=== PATIENT | male | born 1960 | race Caucasian/White ===

== ENCOUNTER 2018-10-10 13:59 | Emergency (ER) | payer OTHER ==
[2018-10-10] MEDS ORDERED: Aspirin Chewable 81 MG TAB ONE (14:20)
[2018-10-10] MEDS ORDERED: Nitroglycerin 2% Ointment 1 INCH/1 GM Packet ONE (14:20)
[2018-10-10 14:24] LABS: #Lymphocytes 1.4 thou/uL (1.20-3.40); #Monocytes 0.4 thou/uL (0.11-0.59); #Neutrophils 3.9 thou/uL (1.40-6.50); %Basophils 0.8 % (0.0-1.0); %Eosinophils 0.5 % (0.0-10.0); %Lymphocytes 24.1 % (21.0-51.0); %Monocytes 7.1 % (0.0-10.0); %Neutrophils 67.6 % (42.0-75.0); Mean Corpuscular HGB CONC 31.7 g/dL (32.0-36.0); Mean Corpuscular Volume 85.4 fL (78.0-98.0); Mean Platelet Volume 8.9 fL (7.4-10.4); Platelet Count 196 thou/uL (130-400); RBC Distribution Width 12.6 % (11.5-14.5); Red Blood Cell (RBC) Count 5.54 mill/uL (4.70-6.10); White Blood Cell (WBC) Count 5.8 thou/uL (4.8-10.8)
--- NOTE | 2018-10-10 14:30 | RAD ---
FXR Chest 1 View Portable History: [Chest pain] Comparison: Radiograph 2015 Findings: The lungs are clear. No pneumothorax or effusion. Cardiac silhouette and mediastinal contou rs are within normal limits. Impression: No acute intrathoracic abnormality.
[2018-10-10 14:42] LABS: ALT (SGPT) 33 U/L (8-55); AST (SGOT) 20 U/L (5-34); Alkaline Phosphatase 106 U/L (40-150); Anion Gap 13 mmol/L (10-20); BUN (Urea Nitrogen) 13 mg/dL (8.4-25.7); Bilirubin, Total 0.4 mg/dL (0.2-1.2); CK (CPK) 134 U/L (30-200); Calc. Creatinine Clearance 0 mL/min (70-130); Calcium 9.3 mg/dL (7.8-10.44); Carbon Dioxide 23 mmol/L (22-29); Chloride 104 mmol/L (98-107); Estimated GFR-MDRD 67; Globulin 3.2 g/dL (2.4-3.5); Glucose 339 mg/dL (70-105); Lipase 34 U/L (8-78); Potassium 3.9 mmol/L (3.5-5.1); Protein, Total 7.2 g/dL (6.0-8.3); Sodium 136 mmol/L (136-145)
== END 2018-10-10 15:23 | disposition home or self-care (01) ==
LOC: SCSER 13:59
DX: R07.9 Chest pain, unspecified (principal); E11.9 Type 2 diabetes mellitus without complications; I10 Essential (primary) hypertension; G47.33 Obstructive sleep apnea (adult) (pediatric); Z79.899 Other long term (current) drug therapy; Z79.84 Long term (current) use of oral hypoglycemic drugs
CPT/HCPCS: 71045; 80053; 82550; 83690; 84484; 85025; 93005; 94760

== ENCOUNTER 2019-07-16 15:40 | Outpatient (CLI) | payer OTHER ==
--- NOTE | 2019-07-16 16:42 | MRI ---
EXAM: MRI right knee PROVIDED CLINICAL HISTORY: Pain COMPARISON: None FINDINGS: The anterior cruciate ligament, posterior cruciate ligament, medial collateral ligament and lateral c ollateral ligamentous complex demonstrate an intact MR appearance, as does the extensor mechanism. There is a complex nondisplaced tear involving the posterior horn of the medial meniscus. The lateral meniscus demonstrates no evidence for tear. No focal articular cartilage defect is apparent. There is signal inhomogeneity involving the patellar articular cartilage involving the median ridge and medial facet with probable full-thickness reticular cartilage fissuring involving the medial facet associated with subcortical signal alteratio n. Articular cartilage irregularity is seen involving the posterior aspects of the lateral femoral condyle with subjacent subcortical signal alteration. There is a moderate knee joint effusion. Intra-articular bodies are seen within the popliteal hiatus. Largest of these measures about 8 mm. No focal concerning regional marrow or muscular signal abnormality apparent. IMPRESSION: 1. Complex nondisplaced posterior horn medial meniscal tear. 2. 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 3. Moderate knee joint effusion.
== END 2019-07-16 15:41 | disposition home or self-care (01) ==
LOC: TBSIIMAG 15:40
PROVIDERS: ATTEND Orthopaedic Surgery
DX: M25.561 Pain in right knee (principal); S83.231A Complex tear of medial meniscus, current injury, right knee, initial encounter; M25.461 Effusion, right knee

== ENCOUNTER 2019-09-24 13:54 | Outpatient (CLI) | payer OTHER ==
--- NOTE | 2019-09-24 14:17 | RAD ---
Right Little finger 3 views HISTORY: Injury. FINDINGS: Mild joint space narrowing and osteophytosis at the distal interphalangeal joint. Fifth met acarpal has a normal appearance. No acute fracture, dislocation, or aggressive osseous erosions. IMPRESSION : Mild osteoarthritic changes distal phalanx. No acute osseous abnormalities are demonstrated.
== END 2019-09-24 13:55 | disposition home or self-care (01) ==
LOC: BICRAD 13:54
PROVIDERS: ATTEND Nurse Practitioner
DX: S69.91XA Unspecified injury of right wrist, hand and finger(s), initial encounter (principal); M19.041 Primary osteoarthritis, right hand

== ENCOUNTER 2020-06-28 21:10 | Observation (INO) | payer OTHER ==
[2020-06-29 00:24] VITALS: BMI 43.3
[2020-06-29 01:02] LABS: Troponin I Less than 0.010 ng/mL (< 0.028)
[2020-06-29] MEDS ORDERED: Dextrose 50% Abboject 50 ML SYRINGE SLOW IVP PRN (01:38)
[2020-06-29] MEDS ORDERED: HumaLOG 300 UNITS/3 ML VIAL SC PRN (01:38)
[2020-06-29] MEDS ORDERED: Dextrose 5% in Water 1,000 ML IV PRN (01:38)
--- NOTE | 2020-06-29 01:50 | PDOC.HHP ---
Hospitalist HPI - History of Present Illness History of Present Illness: ADMISSION DATE: 06/09/2020 TIME OF ASSESSMENT: 00 45 PRIMARY CARE PHYSICIAN: ANNA Olguin CHIEF COMPLAINT: Chest pain and palpitations HPI: Patient is a 60-year-old male with past medical history significant for hypertension and diabetes mellitus type 2. Patient states that today he was at home and felt palpitations and a pressure in his chest. His watch was able to take an EKG and showed A. fib with RVR up to the 190s. Patient presented to the ER but by that time the palpitations had ended and he is back in sinus rhythm. Chest pain also resolved at that time. Denies diaphoresis, shortness of breath, fever, contact with sick persons, GI symptoms. Patient does endorse recent cough, nonproductive taking NyQuil for yesterday. ED COURSE: Patient was initially seen in the [place] ER and then transferred as a direct admission to telemetry. Vital Signs: Blood pressure 151/79, pulse 89, respiratory 16, temp 99.1 oral, 95% on room air In the [place] ER he had an EKG, chest x-ray, and lab work completed. He was administered nitro 1 inch topical and aspirin 324 mg p.o. PAST MEDICAL HISTORY: Diabetes mellitus type 2, hypertension, obstructive sleep apnea PAST SURGICAL HISTORY: Neck surgery, nasal surgery, cholecystectomy, hernia repair, right and left ankle surgery, cardiac [place] [address] Benavides interventions necessary SOCIAL HISTORY: Patient lives at home with his . They are both retired. He denies any alcohol, drugs, tobacco use. FAMILY HISTORY: CAD, hypertension ALLERGIES: Codeine CURRENT MEDICATIONS: Lisinopril 5 mg once a day Metformin 500 mg 2 times a day Glipizide 2.5 mg once a day Vitamin D3 2000 units once a day Hospitalist ROS - Review of Systems Respiratory: reports: cough Cardiovascular: reports: chest pain, palpitations All other systems reviewed; all pertinent +/- noted in HPI/Subj - Exam General Appearance: NAD, awake alert Eye: PERRL ENT: normocephalic atraumatic Neck: supple Heart: RRR, no murmur, no gallops, no rubs, normal peripheral pulses Respiratory: CTAB, no wheezes, no rales, no ronchi, normal chest expansion Gastrointestinal: soft, non-tender, non-distended, normal bowel sounds Extremities: no cyanosis, no edema Neurological: no focal deficits Musculoskeletal: no muscle wasting Psychiatric: normal affect, normal behavior, A&O x 3 Hospitalist Results - Labs Lab results: Laboratory Tests 06/28/20 06/28/20 06/28/20 00:15 19:10 19:10 WBC Hgb Hct Sodium 140 Potassium 3.8 BUN 15 Creatinine 0.97 Estimated GFR (MDRD) 79 Glucose 229 H Troponin I Less than 0.010 B-Natriuretic Peptide 12.6 06/28/20 06/28/20 19:10 19:10 WBC 3.7 L Hgb 15.3 Hct 47.5 Sodium Potassium BUN Creatinine Estimated GFR (MDRD) Glucose Troponin I 0.011 B-Natriuretic Peptide - EKG Interpretation EKG: Sinus rhythm 94 bpm - Radiology Interpretation Chest x-ray Status: image reviewed by me, report reviewed by me Additional Comment: No acute thoracic findings. Hospitalist H&P A/P - Plan Plan: Chest pain Continue to monitor patient on telemetry Continue to trend troponins, first 2 were negative Cardiology consultation in a.m. Palpitations Resolved at this time and currently in sinus rhythm Monitor on telemetry for any arrhythmias Repeat BMP in a.m. Echo in a.m. Hypertension Monitor vital signs every 4 hours Restart home medications once reconciled As needed antihypertensives to be made available Diabetes mellitus type 2 Monitor Accu-Cheks AC at bedtime Mild sliding scale insulin restart home medications once reconciled VTE prophylaxis in place with SCDs CODE STATUS: Full Surrogate decision-maker is his , Olivia
[2020-06-29 03:38] LABS: Anion Gap 15 mmol/L (10-20); BUN (Urea Nitrogen) 15 mg/dL (8.4-25.7); Calc. Creatinine Clearance 180 mL/min (70-130); Calcium 8.2 mg/dL (7.8-10.44); Carbon Dioxide 21 mmol/L (22-29); Chloride 106 mmol/L (98-107); Glucose 166 mg/dL (70-105); Potassium 4.1 mmol/L (3.5-5.1); Sodium 138 mmol/L (136-145)
[2020-06-29 03:45] LABS: Troponin I 0.014 ng/mL (< 0.028)
[2020-06-29 04:18] LABS: Hemoglobin 14.2 g/dL (14.0-18.0); Mean Corpuscular HGB CONC 33.1 g/dL (32.0-36.0); Mean Corpuscular Hemoglobin 28.5 pg (27.0-31.0); Mean Corpuscular Volume 86.1 fL (78.0-98.0); Platelet Count 170 thou/uL (130-400); RBC Distribution Width 12.3 % (11.5-14.5); Red Blood Cell (RBC) Count 4.97 mill/uL (4.70-6.10); White Blood Cell (WBC) Count 3.8 thou/uL (4.8-10.8)
[2020-06-29 04:19] LABS: Band 4 % (5-11); Eosinophils 1 % (0-10); Lymphocytes 28 % (21-51); MDiff Complete? YES; Monocytes 20 % (0-10); Neutrophil 47 % (42-75)
[2020-06-29 05:21] LABS: SARS-CoV-2 MS2 Positive; SARS-CoV-2 N Gene Positive; SARS-CoV-2 S Gene Positive; SARS-CoV-2 by NAA DETECTED (NotDetected); SARS-CoV-2 orf1ab Positive
[2020-06-29] MEDS: HumaLOG 300 UNITS/3 ML VIAL SC PRN ×3 (06:21→13:34)
[2020-06-29] MEDS ORDERED: metFORMIN 500 MG TAB PO SCH ×2 (08:00→17:00)
[2020-06-29] MEDS ORDERED: Benzonatate 100 MG CAP PO PRN (08:55)
[2020-06-29] MEDS ORDERED: Ondansetron ODT 4 MG TAB PO PRN (08:55)
[2020-06-29] MEDS ORDERED: Sodium Chloride 0.65% Nasal 44 ML BOT EA NARE PRN (08:55)
[2020-06-29] MEDS ORDERED: Diabetic Tussin 200 MG/10 ML UDCUP PO PRN (08:55)
[2020-06-29] MEDS ORDERED: hydrALAZINE 20 MG/ML VIAL SLOW IVP PRN (08:55)
[2020-06-29] MEDS ORDERED: Loperamide HCl 2 MG CAP PO PRN (08:55)
[2020-06-29] MEDS ORDERED: Senokot S 8.6-50 MG TAB PO PRN (08:55)
[2020-06-29] MEDS ORDERED: Cepastat Lozenges 1 LOZ PO PRN (08:55)
[2020-06-29] MEDS ORDERED: Calcium Carbonate 500 MG ChewTAB PO PRN (08:55)
[2020-06-29] MEDS ORDERED: Ondansetron PF 4 MG/2 ML Vial IVP PRN (08:55)
[2020-06-29] MEDS ORDERED: Loratadine 10 MG TAB PO PRN (08:55)
[2020-06-29] MEDS ORDERED: Bisacodyl 10 MG SUPP PR PRN (08:55)
[2020-06-29] MEDS ORDERED: Zolpidem Tartrate 5 MG TAB PO PRN (08:55)
--- NOTE | 2020-06-29 09:06 | CON ---
DATE OF CONSULTATION: HISTORY OF PRESENT ILLNESS: The patient is a 60-year-old gentleman who presents for evaluation of palpitations and chest discomfort. The patient was seen approximately 5 years ago with chest discomfort. He underwent a cardiac catheterization. The patient was found to have normal left ventricular systolic function with normal coronary arteries. The patient was in his usual state of health, when yesterday he started developing palpitations. He felt he also developed substernal chest discomfort. He noted his heart rate was nearly 200. He came to the emergency room for further evaluation. The patient states his chest pain subsequently resolved. The patient states prior to this he was very physically active and denied having any chest pain or dyspnea. The patient denied having any fevers or chills. PAST MEDICAL HISTORY: 1. Diabetes mellitus. 2. Hypertension. 3. Sleep apnea. PAST SURGICAL HISTORY: Cholecystectomy, neck surgery, and hernia surgery. SOCIAL HISTORY: Nonsmoker. MEDICATIONS: 1. Lisinopril 5 daily. 2. Metformin 500 b.i.d. 3. Glipizide 2.5 daily. SOCIAL HISTORY: Former smoker. FAMILY HISTORY: Positive family history of heart disease. Mother had coronary artery disease. ALLERGIES: HE IS ALLERGIC TO CODEINE. REVIEW OF SYSTEMS: Ten-point system otherwise unremarkable. No history of easy bruising or bleeding. PHYSICAL EXAMINATION: GENERAL: This is an obese gentleman. VITAL SIGNS: Blood pressure 135/73, heart rate was 74. Physical examination was deferred due to COVID positive. LABORATORY DATA: Sodium 138, potassium 4.1, chloride 106, bicarbonate 21, BUN 15, creatinine 0.8, and glucose 166. White blood cell count 3.8, hemoglobin 14.2, hematocrit 42.8, and platelets 170. Troponin was less than 0.104. His EKG revealed normal sinus rhythm, normal ECG. Phone monitoring on his phone rapid narrow complex tachycardia, rate approximately 180, suggestive of SVT or possibly afib. IMPRESSION: 1. Supraventricular tachycardia. 2. Chest pain. 3. COVID positive. 4. Diabetes mellitus. 5. Hypertension. 6. Obesity. PLAN: This gentleman presents with probable SVT. We will obtain an EP consultation. From a cardiac standpoint with the patient COVID positive, no evidence of myocardial infarction, we would recommend medical therapy. The patient should continue on aspirin. We will add lipid-lowering medication. The patient will be started on a beta-daniel. EP consultation will be obtained for possible AV chris ablation . This could be atrial fibrillation. We will follow this patient with you through his hospitalization. Job ID: [id number] MTDD
[2020-06-29] MEDS: Ascorbic Acid 500 mg Chewable Tablet PO SCH (09:59)
[2020-06-29] MEDS: Aspirin 325 mg Enteric Coated Tablet PO SCH (10:00)
[2020-06-29] MEDS: Cholecalciferol 1,000 UNITS (25 MCG) TAB PO SCH (10:00)
[2020-06-29] MEDS: Lisinopril 5 MG TAB PO SCH (10:00)
[2020-06-29] MEDS: Zinc Sulfate 220 MG CAP PO SCH (10:02)
--- NOTE | 2020-06-29 10:09 | PDOC.HOSPP ---
- Subjective Encounter Date: 06/29/20 Encounter Time: 07:00 Subjective: Patient seen and examined bedside today, no overnight event, no new complaint, he has mild cough and mild chest congestion, he has mild nasal congestion - Objective Vital Signs & Weight: Vital Signs (12 hours) Temp Pulse Resp BP Pulse Ox 06/29/20 08:33 98.5 F 85 16 164/77 H 97 06/29/20 07:01 99 06/29/20 03:51 98.5 F 74 20 135/73 99 06/29/20 02:30 12 Weight Weight 285 lb Result Diagrams: 06/29/20 03:08 06/29/20 03:08 Additional Labs: Accuchecks 06/29/20 05:44 POC Glucose 204 H Radiology Reviewed by me: Yes EKG Reviewed by me: Yes Hospitalist ROS - Review of Systems Eyes: denies: pain, vision change, conjunctivae inflammation, eyelid inflammation, redness, other ENT: reports: nose congestion. denies: ear pain, ear discharge, nose pain, nose discharge, mouth pain, mouth swelling, throat pain, throat swelling, other Respiratory: reports: cough. denies: dry, shortness of breath, hemoptysis, SOB with excertion, pleuritic pain, sputum, wheezing, other Cardiovascular: denies: chest pain, palpitations, orthopnea, paroxysmal noc. dyspnea, edema, light headedness, other Gastrointestinal: denies: nausea, vomiting, abdominal pain, diarrhea, constipation, melena, hematochezia, other Genitourinary: denies: dysuria, frequency, incontinence, hematuria, retention, other Musculoskeletal: denies: neck pain, shoulder pain, arm pain, back pain, hand pain, leg pain, foot pain, other Skin: denies: rash, lesions, harpal, bruising, other - Medication Medications: Active Medications Generic Name Dose Route Start Last Admin Trade Name Freq PRN Reason Stop Dose Admin Ascorbic Acid 1,000 mg 06/29/20 09:00 06/29/20 09:59 Ascorbic Acid 500 Mg Chewable Tablet PO 1,000 mg DAILY SAROJ Administration Aspirin 325 mg 06/29/20 09:00 06/29/20 10:00 Aspirin 325 Mg Enteric Coated Tablet PO 325 mg DAILY SAROJ Administration Cholecalciferol 2,000 units 06/29/20 09:00 06/29/20 10:00 Cholecalciferol 1,000 Units (25 Mcg) Tab PO 2,000 units DAILY SAROJ Administration Glipizide 2.5 mg 06/29/20 08:00 06/29/20 09:59 Glipizide Xl 2.5 Mg Tablet PO 2.5 mg QAM-WM SAROJ Administration Insulin Human Lispro 0 units 06/29/20 01:38 06/29/20 06:21 Humalog 300 Units/3 Ml Vial SC 3 unit .MILD SLIDING SCALE PRN Administration Mild Correctional Scale Lisinopril 5 mg 06/29/20 09:00 06/29/20 10:00 Lisinopril 5 Mg Tab PO 5 mg DAILY SAROJ Administration Metformin HCl 500 mg 06/29/20 08:00 06/29/20 09:29 Metformin 500 Mg Tab PO Not Given BID-WM SAROJ Metoprolol Succinate 25 mg 06/29/20 09:00 06/29/20 10:01 Metoprolol Succinate Xl 25 Mg Tab PO 25 mg BID SAROJ Administration Zinc Sulfate 220 mg 06/29/20 09:00 06/29/20 10:02 Zinc Sulfate 220 Mg Cap PO 220 mg DAILY SAROJ Administration - Exam General Appearance: NAD, awake alert Eye: PERRL, anicteric sclera ENT: normocephalic atraumatic, no oropharyngeal lesions Neck: supple, symmetric, no JVD, no thyromegaly Heart: RRR, no murmur, no gallops, no rubs Respiratory: no wheezes, no rales, no ronchi Gastrointestinal: soft, non-tender, non-distended, normal bowel sounds Gastrointestinal - other findings: Obesity noted Extremities: no cyanosis, no clubbing, no edema Skin: normal turgor, no lesions Neurological: no focal deficits Musculoskeletal: normal tone, normal strength Psychiatric: normal affect, normal behavior, A&O x 3 Hosp A/P (1) Chest pain Code(s): R07.9 - CHEST PAIN, UNSPECIFIED Status: Acute (2) Palpitation Code(s): R00.2 - PALPITATIONS Status: Acute (3) COVID-19 Code(s): U07.1 - COVID-19 Status: Acute (4) Morbid obesity with BMI of 40.0-44.9, adult Code(s): E66.01 - MORBID (SEVERE) OBESITY DUE TO EXCESS CALORIES; Z68.41 - BODY MASS INDEX [BMI]40.0-44.9, ADULT Status: Chronic (5) Diabetes type 2, controlled Code(s): E11.9 - TYPE 2 DIABETES MELLITUS WITHOUT COMPLICATIONS Status: Chronic Qualifiers: Diabetes mellitus long-term insulin use: with buttermaker use Diabetes mellitus complication status: without complication Qualified Code(s): E11.9 - Type 2 diabetes mellitus without complications; Z79.4 - extermination inspector (current) use of insulin (6) Hypertension Code(s): I10 - ESSENTIAL (PRIMARY) HYPERTENSION Status: Chronic (7) Obstructive sleep apnea on CPAP Code(s): G47.33 - OBSTRUCTIVE SLEEP APNEA (ADULT) (PEDIATRIC); Z99.89 - DEPENDENCE ON OTHER ENABLING MACHINES AND DEVICES Status: Chronic - Plan old records reviewed/req We will add vitamin C 1 g p.o. daily, zinc sulfate 220 mg p.o. daily Cardiology has been consulted and the recommendation appreciated, electrophysiology is consulted, We will monitor on telemetry floor for any recurrent arrhythmia, Continue isolation Continue his home medication, Expecting discharge in next 24 hours.
[2020-06-29] MEDS ORDERED: Atorvastatin Calcium 20 MG TAB PO SCH (21:00)
[2020-06-30 05:32] LABS: Anion Gap 12 mmol/L (10-20); BUN (Urea Nitrogen) 14 mg/dL (8.4-25.7); Calc. Creatinine Clearance 167 mL/min (70-130); Calcium 8.7 mg/dL (7.8-10.44); Carbon Dioxide 25 mmol/L (22-29); Chloride 102 mmol/L (98-107); Glucose 159 mg/dL (70-105); Potassium 4.2 mmol/L (3.5-5.1); Sodium 135 mmol/L (136-145)
[2020-06-30] MEDS: HumaLOG 300 UNITS/3 ML VIAL SC PRN ×2 (06:12→11:38)
[2020-06-30 06:25] LABS: Band 15 % (5-11); Eosinophils 1 % (0-10); Hemoglobin 14.4 g/dL (14.0-18.0); Lymphocytes 32 % (21-51); MDiff Complete? YES; Mean Corpuscular HGB CONC 31.8 g/dL (32.0-36.0); Mean Corpuscular Hemoglobin 27.2 pg (27.0-31.0); Mean Corpuscular Volume 85.7 fL (78.0-98.0); Mean Platelet Volume 8.9 fL (7.4-10.4); Monocytes 13 % (0-10); Neutrophil 39 % (42-75); Platelet Count 177 thou/uL (130-400); RBC Distribution Width 12.6 % (11.5-14.5)
[2020-06-30] MEDS: Ascorbic Acid 500 mg Chewable Tablet PO SCH (08:46)
[2020-06-30] MEDS: Lisinopril 5 MG TAB PO SCH (08:46)
[2020-06-30] MEDS: Aspirin 325 mg Enteric Coated Tablet PO SCH (08:46)
[2020-06-30] MEDS: Cholecalciferol 1,000 UNITS (25 MCG) TAB PO SCH (08:46)
[2020-06-30] MEDS: Zinc Sulfate 220 MG CAP PO SCH (08:47)
--- NOTE | 2020-06-30 10:38 | PDOC.DS.DS ---
Provider - Provider Date of Admission: 06/28/20 23:15 Date of Discharge: 06/30/20 Admitting Provider: Shankar Faye MD Consultations: Cardiology Primary Care Physician: Luz Olguin, MSN, [facility] Course - Hospital Course Hospital Course: Patient was admitted for chest pain and palpitation, patient had apple watch monitoring tachycardia, suspected for SVT, patient did not any further arrhythmia while in hospital, serial cardiac enzyme is negative, cardiology was consulted, patient was initially decided to treat medically, we started Toprol- XL, we also started Lipitor, aspirin was also given, patient will need outpatient follow-up with electrophysiology for evaluation with ablation if recurrent problem, patient is completely asymptomatic and his COVID-19 test is positive, self quarantine measures discussed with the patient, telemetry remained unremarkable, patient is asymptomatic, if cardiology clears him then will consider discharging him home today. Resuscitation Status: 06/29/20 01:38 Resuscitation Status Routine Co-Sign Provider: Resuscitation Status: FULL: Full Resuscitation Discussed with: pt - Labs Lab Results: 06/30/20 04:20 06/30/20 04:20 Abnormal Lab Results - Last 48 hrs 06/28/20 : SARS-CoV-2 (PCR) DETECTED A* 06/29/20 03:08: Carbon Dioxide 21 L 06/29/20 03:08: WBC 3.8 L, Band Neuts % (Manual) 4 L, Monocytes % (Manual) 20 H 06/29/20 08:54: C-Reactive Protein 0.53 H 06/30/20 04:20: Sodium 135 L 06/30/20 04:20: MCHC 31.8 L, Neutrophils % (Manual) 39 L, Band Neuts % (Manual) 15 H, Monocytes % (Manual) 13 H - Physical Exam Vitals: Vital Signs (12 hours) Temp Pulse Resp BP BP Pulse Ox 06/30/20 08:50 98.6 F 77 17 129/62 97 06/30/20 08:37 99 06/30/20 03:53 98.3 F 84 17 146/77 H 99 06/30/20 01:09 13 Weight Weight 285 lb Physical Exam: The patient was seen and examined on the day of discharge. General patient is currently alert and awake no acute distress Head normocephalic atraumatic Neck supple no JVD no meningeal signs of irritation Lungs clear to auscultation without any rhonchi or rales Cardiac S1-S2 regular, no murmur no gallop no rub Abdomen soft, bowel sounds present, nontender nondistended no organomegaly no mass Extremity no edema Neurologic nonfocal examination Problem - Problem (1) Chest pain Code(s): R07.9 - CHEST PAIN, UNSPECIFIED Status: Acute (2) Palpitation Code(s): R00.2 - PALPITATIONS Status: Acute (3) COVID-19 Code(s): U07.1 - COVID-19 Status: Acute (4) Morbid obesity with BMI of 40.0-44.9, adult Code(s): E66.01 - MORBID (SEVERE) OBESITY DUE TO EXCESS CALORIES; Z68.41 - BODY MASS INDEX [BMI]40.0-44.9, ADULT Status: Chronic (5) Diabetes type 2, controlled Code(s): E11.9 - TYPE 2 DIABETES MELLITUS WITHOUT COMPLICATIONS Status: Chronic Qualifiers: Diabetes mellitus intermediate insulin use: with intermediate use Diabetes mellitus complication status: without complication Qualified Code(s): E11.9 - Type 2 diabetes mellitus without complications; Z79.4 - exterminator helper termite (current) use of insulin (6) Hypertension Code(s): I10 - ESSENTIAL (PRIMARY) HYPERTENSION Status: Chronic (7) Obstructive sleep apnea on CPAP Code(s): G47.33 - OBSTRUCTIVE SLEEP APNEA (ADULT) (PEDIATRIC); Z99.89 - DEPENDENCE ON OTHER ENABLING MACHINES AND DEVICES Status: Chronic Plan - Discharge Medications Prescriptions: Aspirin [Ecotrin Regular Strength] 325 mg PO DAILY #30 tab Atorvastatin Calcium [Lipitor] 20 mg PO HS #30 tab Metoprolol Succinate [Toprol XL] 50 mg PO DAILY #30 tab Ascorbic Acid [Vitamin C] 1,000 mg PO DAILY #14 tab Zinc Sulfate 220 mg PO DAILY #14 cap Home Medications: Medication Instructions Recorded Confirmed Type Cholecalciferol (Vitamin D3) 2,000 unit PO DAILY 06/28/20 06/28/20 History [Vitamin D3] Lisinopril 5 mg PO DAILY 06/28/20 06/28/20 History glipiZIDE [glipiZIDE ER] 2.5 mg PO QAM- 06/28/20 06/28/20 History metFORMIN [Glucophage] 500 mg PO QPM- 06/28/20 06/29/20 History Ascorbic Acid [Vitamin C] 1,000 mg PO DAILY #14 tab 06/30/20 Rx Aspirin [Ecotrin Regular Strength] 325 mg PO DAILY #30 tab 06/30/20 Rx Atorvastatin Calcium [Lipitor] 20 mg PO HS #30 tab 06/30/20 Rx Metoprolol Succinate [Toprol XL] 50 mg PO DAILY #30 tab 06/30/20 Rx Zinc Sulfate 220 mg PO DAILY #14 cap 06/30/20 Rx Allergies: codeine Allergy (Verified 06/28/20 23:42) - Discharge Instructions Activity:: Activity as Tolerated Nourishment:: Diabetic Diet Therapies:: Not Applicable Equipment/Supplies:: Not Applicable IV Therapy:: Not Applicable - Follow up Plan Referrals: Obed Jessica MD [Active] - 07/21/20 11:00 am (Please go to your appointment with the central supply technician supervisor. You will be seeing the Nurse Practitioner Jenn.) Sorin Mcdaniels MD [News Gathering Technician] - 2-3 Weeks (Please follow up with EP in 2-3 weeks. Call the office to schedule an appointment. ) Luz Olguin, MSN REFUND CLERK BC [Primary Care Provider] - 7 Days (Please follow up with your primary care provider after quarantine. Call the office to schedule an appointment.) Disposition: HOME Quality - Care Measures CORE MEASURES:: N/A
[2020-06-30 11:09] VITALS: BP 123/71; TEMP 98.4
== END 2020-06-30 12:50 | disposition home or self-care (01) ==
LOC: 2NO 23:15
PROVIDERS: ADMIT Student in an Organized Health Care Education/Training Program; ATTEND Internal Medicine
DX: U07.1 COVID-19 (principal); R07.89 Other chest pain; R00.2 Palpitations; I10 Essential (primary) hypertension; E11.9 Type 2 diabetes mellitus without complications; G47.33 Obstructive sleep apnea (adult) (pediatric); E66.01 Morbid (severe) obesity due to excess calories; Z68.41 Body mass index [BMI] 40.0-44.9, adult; Z87.891 Personal history of nicotine dependence; Z79.82 Long term (current) use of aspirin; Z79.84 Long term (current) use of oral hypoglycemic drugs; Z79.899 Other long term (current) drug therapy; Z88.5 Allergy status to narcotic agent
CPT/HCPCS: 36415; 36416; 80048; 82728; 83615; 84484; 85025; 85379; 86140; 87635; 90471; 90732; 94660; 94760; G0009; G0378; U0003

== ENCOUNTER 2020-11-03 15:12 | Emergency (ER) | payer OTHER ==
[2020-11-03 17:09] LABS: #Lymphocytes 1.3 thou/uL (1.20-3.40); #Monocytes 0.5 thou/uL (0.11-0.59); #Neutrophils 7.7 thou/uL (1.40-6.50); %Basophils 0.1 % (0.0-1.0); %Eosinophils 0.5 % (0.0-10.0); %Lymphocytes 13.3 % (21.0-51.0); %Monocytes 5.7 % (0.0-10.0); %Neutrophils 80.5 % (42.0-75.0); Hemoglobin 14.2 g/dL (14.0-18.0); Mean Corpuscular HGB CONC 33.1 g/dL (32.0-36.0); Mean Corpuscular Hemoglobin 28.4 pg (27.0-31.0); Mean Corpuscular Volume 85.8 fL (78.0-98.0); Mean Platelet Volume 8.6 fL (7.4-10.4); Platelet Count 177 thou/uL (130-400); RBC Distribution Width 12.3 % (11.5-14.5); Red Blood Cell (RBC) Count 5.02 mill/uL (4.70-6.10); White Blood Cell (WBC) Count 9.5 thou/uL (4.8-10.8)
[2020-11-03] MEDS ORDERED: Meclizine HCl 25 MG TAB ONE ×2 (17:25→17:26)
[2020-11-03 17:33] LABS: ALT (SGPT) 19 U/L (8-55); AST (SGOT) 18 U/L (5-34); Albumin 3.7 g/dL (3.5-5.0); Alkaline Phosphatase 98 U/L (40-110); Anion Gap 13 mmol/L (10-20); BUN (Urea Nitrogen) 14 mg/dL (8.4-25.7); Bilirubin, Total 0.3 mg/dL (0.2-1.2); Calc. Creatinine Clearance 0 mL/min (70-130); Calcium 8.9 mg/dL (7.8-10.44); Carbon Dioxide 26 mmol/L (22-29); Chloride 104 mmol/L (98-107); Globulin 2.7 g/dL (2.4-3.5); Glucose 193 mg/dL (70-105); Magnesium 1.9 mg/dL (1.6-2.6); Potassium 4.4 mmol/L (3.5-5.1); Protein, Total 6.4 g/dL (6.0-8.3); Sodium 139 mmol/L (136-145)
[2020-11-03] MEDS ORDERED: Acetaminophen 325 MG TAB ONE (17:33)
== END 2020-11-03 19:40 | disposition home or self-care (01) ==
LOC: ERS 15:12
DX: H81.399 Other peripheral vertigo, unspecified ear (principal); Z79.899 Other long term (current) drug therapy; Z79.84 Long term (current) use of oral hypoglycemic drugs; E11.9 Type 2 diabetes mellitus without complications; I10 Essential (primary) hypertension; G47.33 Obstructive sleep apnea (adult) (pediatric)
CPT/HCPCS: 36415; 70450; 80053; 83735; 84484; 85025; 93005

== ENCOUNTER 2020-11-21 03:19 | Inpatient (IN) | payer OTHER ==
[2020-11-21] MEDS ORDERED: Digoxin 0.5 MG/2 ML AMP ONE (03:32)
[2020-11-21] MEDS ORDERED: Lorazepam 2 MG/ML VIAL ONE (03:40)
[2020-11-21] MEDS ORDERED: Diltiazem 125 MG/25 ML ONE (03:40)
[2020-11-21] MEDS ORDERED: Acetaminophen 325 MG TAB PO PRN (04:54)
[2020-11-21] MEDS ORDERED: Ondansetron PF 4 MG/2 ML Vial IVP PRN (04:54)
[2020-11-21] MEDS ORDERED: Dextrose 5% in Water 1,000 ML IV PRN (04:59)
[2020-11-21] MEDS ORDERED: Dextrose 50% Abboject 50 ML SYRINGE SLOW IVP PRN (04:59)
[2020-11-21 05:25] LABS: #Lymphocytes 1.4 thou/uL (1.20-3.40); #Monocytes 0.5 thou/uL (0.11-0.59); #Neutrophils 7.6 thou/uL (1.40-6.50); %Basophils 0.3 % (0.0-1.0); %Eosinophils 0.3 % (0.0-10.0); %Monocytes 4.7 % (0.0-10.0); %Neutrophils 79.7 % (42.0-75.0); Hemoglobin 15.2 g/dL (14.0-18.0); Mean Corpuscular HGB CONC 32.5 g/dL (32.0-36.0); Mean Corpuscular Hemoglobin 28.1 pg (27.0-31.0); Mean Corpuscular Volume 86.4 fL (78.0-98.0); Mean Platelet Volume 8.2 fL (7.4-10.4); Platelet Count 227 thou/uL (130-400); RBC Distribution Width 12.6 % (11.5-14.5); Red Blood Cell (RBC) Count 5.41 mill/uL (4.70-6.10); White Blood Cell (WBC) Count 9.5 thou/uL (4.8-10.8)
[2020-11-21 05:41] LABS: SARS-CoV-2 NAA Rapid Test Not Detected (NotDetected)
[2020-11-21] MEDS ORDERED: Diltiazem 125 MG in Sodium Chloride 0.9% 100 ML IVPB SCH ×2 (05:45→12:22)
[2020-11-21 05:47] LABS: Anion Gap 15 mmol/L (10-20); BUN (Urea Nitrogen) 16 mg/dL (8.4-25.7); Calc. Creatinine Clearance 0 mL/min (70-130); Calcium 8.7 mg/dL (7.8-10.44); Carbon Dioxide 18 mmol/L (22-29); Chloride 107 mmol/L (98-107); Glucose 230 mg/dL (70-105); Magnesium 1.8 mg/dL (1.6-2.6); Potassium 4.4 mmol/L (3.5-5.1); Sodium 136 mmol/L (136-145)
[2020-11-21 05:49] LABS: Troponin I 0.011 ng/mL (< 0.028)
[2020-11-21] MEDS ORDERED: Magnesium 2 GM/50 ML 2 GM in Premix Bag 1 BAG IVPB SCH (06:15)
[2020-11-21 06:47] VITALS: BMI 42.1
[2020-11-21] MEDS: Famotidine 20 MG TAB PO SCH ×2 (08:41→20:35)
[2020-11-21] MEDS ORDERED: Aspirin 81 mg Enteric Coated Tablet PO SCH (09:00)
[2020-11-21] MEDS: HumaLOG 300 UNITS/3 ML VIAL SC PRN ×2 (10:31→13:02)
[2020-11-21] MEDS ORDERED: Enoxaparin Sodium 30 MG/0.3 ML SYRINGE SC SCH (12:30)
[2020-11-21] MEDS ORDERED: Dronedarone HCl 400 MG TAB PO SCH (12:30)
[2020-11-21] MEDS ORDERED: Enoxaparin Sodium 120 MG/0.8 ML SYRINGE SC SCH ×2 (13:00→21:00)
[2020-11-21] MEDS: Dronedarone HCl 400 MG TAB PO SCH (17:46)
[2020-11-21] MEDS: Apixaban 5 MG TAB PO SCH (20:35)
[2020-11-21] MEDS ORDERED: Lantus 1000 UNITS/10 ML VIAL SC SCH (21:00)
[2020-11-21] MEDS ORDERED: Cefdinir 300 MG CAP PO SCH (21:00)
[2020-11-22 04:56] LABS: #Eosinphils 0.1 thou/uL (0.0-0.7); #Monocytes 0.5 thou/uL (0.11-0.59); #Neutrophils 3.6 thou/uL (1.40-6.50); %Basophils 0.6 % (0.0-1.0); %Eosinophils 2.3 % (0.0-10.0); %Lymphocytes 32.2 % (21.0-51.0); %Monocytes 8.1 % (0.0-10.0); %Neutrophils 56.8 % (42.0-75.0); Hemoglobin 14.4 g/dL (14.0-18.0); Mean Corpuscular HGB CONC 32.5 g/dL (32.0-36.0); Mean Corpuscular Volume 86.3 fL (78.0-98.0); Mean Platelet Volume 8.3 fL (7.4-10.4); Platelet Count 198 thou/uL (130-400); RBC Distribution Width 12.6 % (11.5-14.5); Red Blood Cell (RBC) Count 5.13 mill/uL (4.70-6.10); White Blood Cell (WBC) Count 6.3 thou/uL (4.8-10.8)
[2020-11-22 05:21] LABS: Anion Gap 11 mmol/L (10-20); BUN (Urea Nitrogen) 13 mg/dL (8.4-25.7); Calc. Creatinine Clearance 165 mL/min (70-130); Calcium 8.9 mg/dL (7.8-10.44); Carbon Dioxide 22 mmol/L (22-29); Chloride 106 mmol/L (98-107); Glucose 159 mg/dL (70-105); Magnesium 2.1 mg/dL (1.6-2.6); Potassium 3.8 mmol/L (3.5-5.1); Sodium 135 mmol/L (136-145)
[2020-11-22] MEDS: HumaLOG 300 UNITS/3 ML VIAL SC PRN ×2 (05:54→11:28)
[2020-11-22] MEDS: Apixaban 5 MG TAB PO SCH (09:18)
[2020-11-22] MEDS: Famotidine 20 MG TAB PO SCH (09:18)
[2020-11-22] MEDS: Dronedarone HCl 400 MG TAB PO SCH ×2 (09:19→17:32)
[2020-11-22 16:06] VITALS: BP 124/68; TEMP 97.4
== END 2020-11-22 17:50 | disposition home or self-care (01) | DRG 309 ==
LOC: ERS 03:19 → CCU 04:19 → 2NO 14:14
PROVIDERS: ADMIT Internal Medicine; ATTEND Internal Medicine
DX: I48.91 Unspecified atrial fibrillation (principal); Z68.41 Body mass index [BMI] 40.0-44.9, adult; I10 Essential (primary) hypertension; E11.9 Type 2 diabetes mellitus without complications; E66.9 Obesity, unspecified; G47.33 Obstructive sleep apnea (adult) (pediatric); Z99.89 Dependence on other enabling machines and devices; Z86.16 Personal history of COVID-19; Z88.5 Allergy status to narcotic agent; Z79.82 Long term (current) use of aspirin; Z79.84 Long term (current) use of oral hypoglycemic drugs; Z90.49 Acquired absence of other specified parts of digestive tract; Z87.891 Personal history of nicotine dependence; Z82.3 Family history of stroke; Z82.49 Family history of ischemic heart disease and other diseases of the circulatory system
CPT/HCPCS: 36415; 36416; 80048; 83735; 84443; 85025; 85379; 93005; 93010; 93306; 94660; 96365; 96375; J1160; J1650; J1815; J2060; J3475; J3490; U0002

== ENCOUNTER 2020-12-30 13:41 | Outpatient (CLI) | payer OTHER | END 2020-12-30 13:42 | disposition home or self-care (01) | LOC: TBSIIMAG 13:41 | PROVIDERS: ATTEND Family Medicine | DX: M47.22 Other spondylosis with radiculopathy, cervical region (principal); G89.4 Chronic pain syndrome; M96.1 Postlaminectomy syndrome, not elsewhere classified | CPT/HCPCS: 72156 ==

== ENCOUNTER 2024-08-08 12:10 | Outpatient (CLI) | payer OTHER | END 2024-08-08 12:11 | disposition home or self-care (01) | LOC: BICULT 12:10 | DX: N50.819 Testicular pain, unspecified (principal); N43.3 Hydrocele, unspecified | CPT/HCPCS: 76870; 93976 ==